=== PATIENT | male | born 1995 | race Caucasian/White ===

== ENCOUNTER 2016-09-29 08:40 | Inpatient (IN) | payer BC ==
[2016-09-14 09:13] VITALS: Ht 182.9 cm; Wt 90.3 kg
--- NOTE | 2016-09-14 09:34 | PAT Medication Instructions ---
Service Date September 14, 2016. Current Home Medication List Tramadol (Ultram), 50 MG PO Q8H PRN for Pain Medication Instructions For Your Scheduled Surgery - Take the following medications the morning of surgery with a sip of water: Tramadol (Ultram), 50 MG PO Q8H PRN for Pain (okay to take up to 4 hours prior to surgery if needed) - Take the following medications as scheduled the night before surgery: Tramadol (Ultram), 50 MG PO Q8H PRN for Pain (if needed) If you have any questions please call us at [phone] (Nano Ortega PA-C) or [phone] or [phone]
--- NOTE | 2016-09-14 10:15 | DIAGNOSTIC IMAGING REPORT ---
CHEST PREADMISSION(PA/LAT) HISTORY: Preop. COMPARISON: None. FINDINGS: The lungs are clear. Cardiac silhouette is normal in size. No pleural effusions. No pneumothorax. IMPRESSION: No acute process. Electronically signed by: Chapito Elkins M.D. 09/14/2016 10:14 AM Dictated Date/Time: 09/14/2016 10:13 AM
[2016-09-14 10:55] LABS: BUN/CREATININE RATIO 12.9 (10-20); POTASSIUM 4.2 mmol/L (3.5-5.1)
[2016-09-14 10:56] LABS: CALCIUM 9.8 mg/dl (8.5-10.1)
[2016-09-14 11:01] LABS: BASO % 0.5 %; BASO ABS # 0.03 K/uL (0-0.2); COMPLETE YES; EOS % 0.5 %; HEMATOCRIT 44.7 % (42-52); LYMPH % 31.2 %; LYMPH ABS # 1.88 K/uL (1.2-3.4); MEAN CELL VOLUME 92.5 fL (80-100); MEAN CORPUSCULAR HEMOGLOBIN 30.6 pg (25-34); MEAN CORPUSCULAR HGB CONC 33.1 g/dl (32-36); NEUT % 62.8 %; PLATELET COUNT 270 K/uL (130-400); RED BLOOD COUNT 4.83 M/uL (4.7-6.1); WHITE BLOOD COUNT 6.03 K/uL (4.8-10.8)
[2016-09-14 11:01] LABS: URINE APPEARANCE CLEAR (CLEAR); URINE BILIRUBIN NEG (NEG); URINE COLOR YELLOW; URINE NITRITE NEG (NEG); URINE SPECIFIC GRAVITY 1.017 (1.000-1.030); UROBILINOGEN NEG (NEG)
[2016-09-14 11:06] LABS: MANUAL MICROSCOPIC REQUIRED? NO; REVIEW REQ? NO
[~2016-09-29] VITALS: Ht 182.9 cm; Wt 90.3 kg
[2016-09-29] VITALS (10 sets, daily range): BP systolic 126–145; BP diastolic 65–89; PULSE 53–83; TEMP 36.7–37; O2SAT 95–100
[~2016-09-29 08:40] MED LIST: TRAM-10 PO
--- NOTE | 2016-09-29 09:26 | History & Physical Bridge Note ---
H&P Re-Evaluation Bridge Note: I have examined the patient, reviewed the History & Physical and in the interval since the performance of the History & Physical I have noted the following changes of clinical significance: No changes noted
--- NOTE | 2016-09-29 09:27 | History and Physical ---
History & Physical Date Sep 29, 2016. Chief Complaint back and leg pain History of Present Illness The patient is a 21 year old male with complaints of Past Medical/Surgical History Medical Problems: (1) Muscular dystrophy Additional History Hepatic Disease: No Endocrine Disorder: No Kidney Disease: No Hypertension: No Heart Disease: No Bleeding Tendencies: No Infectious Diseases: No Allergies Coded Allergies: Nickel (Verified Allergy, Mild, RASH, 09/29/16) Penicillins (Verified Allergy, Mild, RASH, 09/29/16) Home Medications Scheduled PRN Tramadol (Ultram), 50 MG PO Q8H PRN for Pain Physical Examination Skin: warm/dry, no rash Eyes: normal inspection, EOMI, sclerae normal ENT: normal ENT inspection, pharynx normal Head: normocephalic, atraumatic Neck: supple, no adenopathy, trachea midline Respiratory/Chest: lungs clear, normal breath sounds, no respiratory distress Cardiovascular: regular rate, rhythm, no edema, no murmur Abdomen / GI: normal bowel sounds, non tender Back: normal inspection Extremities: normal inspection, normal range of motion Neurologic/Psych: no motor/sensory deficits, alert, normal reflexes, oriented x 3 Diagnosis hnp/stenosis L4-5 Plan of Treatment decompression coflex L4-5
[2016-09-29] MEDS ORDERED: FENTANYL CITRATE INJ 50 MCG/1 ML 2 ML VIAL ONE ×3 (09:48→11:27)
[2016-09-29] MEDS ORDERED: MIDAZOLAM HCL 1 MG/ML 2ML VIAL ONE (09:48)
[2016-09-29] MEDS ORDERED: BACITRACIN 50000 UNIT VIAL ONE (09:58)
[2016-09-29] MEDS ORDERED: CLINDAMYCIN 600 MG/54 ML D5W IV ONE (10:03)
[2016-09-29] MEDS ORDERED: BUPIVACAINE/EPINEPHRINE 0.5% MPF 1:200,000 30 ML VIAL ONE (10:10)
[2016-09-29] MEDS ORDERED: HYDROmorphone INJ 2 MG/ML SYR/VIAL ONE ×2 (10:26→10:59)
[2016-09-29] MEDS ORDERED: DEXAMETHASONE SOD INJ 4 MG/ML VIAL ONE (10:37)
[2016-09-29] MEDS ORDERED: PROPOFOL IV EMULSION 10 MG/ML 20 ML VIAL IV ONE (10:37)
[2016-09-29] MEDS ORDERED: LIDOCAINE HCL 2% 2 ML VIAL (20MG/ML) ONE (10:37)
[2016-09-29] MEDS ORDERED: ROCURONIUM BROMIDE 10 MG/ML 5 ML VIAL ONE (10:37)
[2016-09-29] MEDS ORDERED: KETOROLAC TROMETHAMINE 30 MG/ML VIAL IV. PRN (11:00)
[2016-09-29] MEDS ORDERED: DO NOT ADMINISTER FLU VACCINE PRN ×3 (11:00)
[2016-09-29] MEDS ORDERED: LORAZEPAM 1 MG TAB PO PRN (11:00)
[2016-09-29] MEDS ORDERED: PROMETHAZINE HCL INJ 6.25 MG in SODIUM CHLORIDE 0.9% 50ML 50 ML IV PRN (11:00)
[2016-09-29] MEDS ORDERED: ACETAMINOPHEN 500 MG TAB PO PRN (11:00)
[2016-09-29] MEDS ORDERED: EpHEDrine SULFATE INJ 50 MG/ML AMP IV PRN (11:00)
[2016-09-29] MEDS ORDERED: FENTANYL CITRATE INJ 50 MCG/1 ML 2 ML VIAL IV PRN (11:00)
[2016-09-29] MEDS ORDERED: LORAZEPAM INJ 1 MG in SYRINGE 0 ML IV PRN (11:00)
[2016-09-29] MEDS ORDERED: ACETAMINOPHEN 325 MG TAB PO PRN (11:00)
[2016-09-29] MEDS ORDERED: MAGNESIUM HYDROXIDE SUSP 30 ML UDC PO PRN (11:00)
[2016-09-29] MEDS ORDERED: DO NOT ADMINISTER PNEUMOCOCCAL VACCINE PRN ×2 (11:00)
[2016-09-29] MEDS ORDERED: ONDANSETRON INJ 2 MG/ML 2 ML VIAL IV PRN ×2 (11:00)
[2016-09-29] MEDS ORDERED: TRAMADOL HCL 50 MG TAB PO PRN (11:00)
[2016-09-29] MEDS ORDERED: HYDROmorphone INJ 1 MG/ML SYR IV PRN ×2 (11:00)
[2016-09-29] MEDS ORDERED: ATROPINE SULFATE 0.1 MG/ML 5ML SYR IV PRN (11:00)
[2016-09-29] MEDS ORDERED: ONDANSETRON INJ 2 MG/ML 2 ML VIAL ONE (11:02)
[2016-09-29] MEDS ORDERED: EpHEDrine SULFATE 50MG/5ML SYR ONE (11:02)
[2016-09-29] MEDS ORDERED: KETOROLAC TROMETHAMINE 30 MG/ML VIAL ONE (11:02)
[2016-09-29] MEDS ORDERED: FLOSEAL HEMOSTATIC MATRIX 10ML TOP ONE (11:11)
--- NOTE | 2016-09-29 11:20 | DIAGNOSTIC IMAGING REPORT ---
INTRAOPERATIVE RADIOGRAPH CLINICAL HISTORY: L4-L5 Coflex. Fluoroscopy time: 5 seconds. EYES: A single spot fluoroscopic view of the lumbar spine is presented. A coflex device is noted between the spinous processes of L4 and L5. IMPRESSION: Intraoperative image of the lumbar spine as above. See operative report for detailed findings. Electronically signed by: Steve Neumann M.D. 09/29/2016 11:19 AM Dictated Date/Time: 09/29/2016 11:18 AM
--- NOTE | 2016-09-29 11:22 | OPERATIVE REPORT ---
DATE OF OPERATION: 09/29/2016 PREOPERATIVE DIAGNOSIS: Herniated nucleus pulposus, spinal stenosis L4-L5. POSTOPERATIVE DIAGNOSIS: Same. PROCEDURE PERFORMED: 1. Lumbar decompression, medial facetectomy, excision of herniated fragment L4-5 on the right. 2. Placement of Coflex posterior stabilization 14 mm in height at L4-L5. SURGEON: Dr. Adam Vo. TOEING STOCKINGS: Valdemar Reyna PA-C. Due to the complex nature of the procedure, the entire surgery was performed with the assistant men's lacrosse coach of Valdemar Reyna PA-C. The assistant teaching professor, under direct supervision, was involved in the actual performance of all aspects of the surgical procedure including hemostasis, tissue retraction and incision, instrument management, patient positioning, and wound closure. ANESTHESIA: General. DISPOSITION: The patient awakened and taken to PACU in stable condition. HISTORY OF PATIENT'S PROBLEMS: This is a 21-year-old male who presents with above-mentioned diagnosis. After failing an extensive course of nonoperative care, elected to undergo the above-mentioned procedure. Risks, benefits, pros, cons, and alternatives were outlined in detail preoperatively. OPERATION AND FINDINGS: DESCRIPTION OF PROCEDURE: The patient was met with preoperatively, the case discussed and all questions were addressed. At that point the patient was taken back to operative suite and after undergoing successful intubation via department of anesthesia was placed in prone position on Ahmet table atop a Milton frame. All bony prominences were well padded and the eyes were inspected to ensure there was no external pressure placed upon them. At this point, lumbar spine was prepped and draped in normal sterile fashion. With the assistance of fluoroscopy, we identified the L4-L5 disc space. Midline incision was created overlying this region. Sharp dissection with the assistance of Bovie cautery was performed down to and exposing the interlaminar space at L4-5. A self-retaining retractor was placed. I then performed a midline decompression, hemilaminotomy on the right with medial facetectomy to expose a severely compressed traversing nerve root. This was mobilized medially. Massive fragments of disc material were identified and removed creating significant decompression. Area was copiously irrigated, explored to ensure all instruments were addressed and then the interlaminar space was fashioned to fit a 14 mm Coflex implant. This was tapped into place, crimped in position. The incision was then copiously irrigated. A 10 round GREG drain inserted. It was then closed with #1 Vicryl in the fascia, 2-0 Vicryl subcutaneously, 4-0 Monocryl for final skin closure. Steri-Strips and sterile dressing placed. The patient was awakened and taken to PACU in stable condition. I attest to the content of the Intraoperative Record and any orders documented therein. Any exception s are noted below.
[2016-09-29] MEDS: LACTATED RINGER'S 1000ML 1,000 ML IV SCH (12:55)
--- NOTE | 2016-09-29 12:57 | Anesthesiology Progress Note ---
Anesthesia Post Op Note Date & Time Sep 29, 2016 at 12:57 Vital Signs Pain Intensity: 4.0 Vital Signs Past 12 Hours Date Time Temp Pulse Resp B/P (MAP) Pulse Ox O2 Delivery O2 Flow Rate FiO2 09/29/16 12:28 95 Nasal Cannula 2.0 09/29/16 11:55 36.8 73 12 139/80 99 Nasal Cannula 2 09/29/16 11:45 77 16 138/82 99 Nasal Cannula 2 09/29/16 11:35 86 15 138/78 100 Mask 10 09/29/16 11:25 80 15 118/77 100 Mask 10 09/29/16 11:15 37.2 73 14 111/57 94 Mask 10 09/29/16 09:29 36.7 66 16 140/79 99 Room Air Notes Mental Status: alert / awake / arousable, participated in evaluation Pt Amnestic to Procedure: Yes Nausea / Vomiting: adequately controlled Pain: adequately controlled Airway Patency, RR, SpO2: stable & adequate BP & HR: stable & adequate Hydration State: stable & adequate Anesthetic Complications: no major complications apparent
[2016-09-29] MEDS ORDERED: HYDROmorphone INJ 2 MG/ML SYR/VIAL IV PRN (13:00)
[2016-09-29] MEDS ORDERED: RXC5 PO (13:06)
--- NOTE | 2016-09-29 13:06 | Discharge Instructions ---
Discharge Instructions Date of Service Sep 29, 2016. Admission Reason for Admission: Lumbar Spinal Stenosis Discharge Discharge Diagnosis / Problem: hnp Discharge Goals Goal(s): Improve function Activity Recommendations Activity Limitations: per Instructions/Follow-up section . Instructions / Follow-Up Instructions / Follow-Up ACTIVITY RECOMMENDATIONS: SELF CARE INSTRUCTIONS AFTER A LAMINECTOMY 1. No prolonged sitting (less than 30 minutes for the first 3 weeks after surgery). 2. No bending, lifting more than 5 pounds, or twisting (roll like a log when turning in bed). 3. You may shower 3 days after surgery if no drainage from wound. Thoroughly dry wound. Do not soak in the tub. 4. Please walk as much as you can for exercise. Gradually increase the distance that you walk as your endurance increases. 5. You may drive in 7-10 days if you are comfortable and no longer requiring pain medications. SPECIAL CARE INSTRUCTIONS: VERY IMPORTANT TO READ AND REVIEW A. Your surgical incision has been closed with a cosmetic suture under the skin that will dissolve in about 6 weeks. In 14 days, you can use a pair of clean scissors and cut the suture that is left outside of the skin at the ends of your incision. B. Complications are uncommon, but please contact us if you have any signs or symptoms of: 1. wound infection (fever higher than 102.5 degrees F, redness, separation of wound, drainage, or increasing pain from the incision) 2. blood clots in legs (pain, swelling, redness and warmth in legs) 3. urinary tract infection (fever higher than 102.5 degrees, burning upon urination or increased frequency of urination) 4. nerve problems (inability to walk on your toes or heels, numbness, loss of bowel or bladder control) 5. any other symptoms that concern you. C. Please call the office at if you have any concerns or questions about your operation or recovery. MANAGING PAIN AFTER SPINAL SURGERY 1. Narcotic medication is intended for short-term use and will be provided for surgical pain. Surgical pain usually lasts for a period of 4-6 weeks. Narcotic medication includes Percocet, Vicodin, Darvocet, Tylenol #3 or Lortab. 2. Longer-term pain is more appropriately treated with non-narcotic medication such as Tylenol ES. 3. Muscle spasm is not appropriately treated with narcotics. Muscle relaxers such as Soma, Flexeril or Skelaxin can be used along with Tylenol ES. 4. Remember that we all live with some "aches and pains". This is not unusual or uncommon after an injury or as we get older. 5. We will provide appropriate medication within the normal guidelines of their prescribed use. We will also be very cautious and aware of potential abuse and extended duration of patients' medication needs. 6. Please allow 2-3 days to process refills. Prescriptions will not be mailed but must be picked up at the office. FOLLOW UP VISIT: Keep your scheduled follow-up appointment. Any questions, please call the office at . Current Hospital Diet Patient's current hospital diet: Regular Diet Discharge Diet Recommended Diet: Regular Diet Procedures Procedures Performed: L4-L5 Disectomy, Decompression; Coflex Implantation Pending Studies Studies pending at discharge: no Medical Emergencies . Who to Call and When: Medical Emergencies: If at any time you feel your situation is an emergency, please call 911 immediately. . Non-Emergent Contact Non-Emergency issues call your: Primary Care Provider . "Provider Documentation" section prepared by Adam Vo. . VTE Core Measure Inpt VTE Proph given/why not?: Amaury Watts, SCD's
[2016-09-29] MEDS: CLINDAMYCIN IV 600 MG in DEXTROSE 5% ADD-VANTAGE 50ML 50 ML IV SCH ×2 (15:39→23:41)
[2016-09-29] MEDS: OXYCODONE HCL IR 5 MG TAB (IMMEDIATE RELEASE) PO PRN ×2 (19:30→23:45)
[2016-09-29] MEDS: DOCUSATE SODIUM 100 MG CAP PO SCH (20:48)
[2016-09-30] MEDS: LACTATED RINGER'S 1000ML 1,000 ML IV SCH (01:32)
[2016-09-30 03:24] VITALS: BP 107/64; PULSE 65; TEMP 36.5; O2SAT 95
[2016-09-30 07:23] VITALS: BP 112/68; PULSE 92; TEMP 37.1; O2SAT 97
[2016-09-30] MEDS: OXYCODONE HCL IR 5 MG TAB (IMMEDIATE RELEASE) PO PRN (07:41)
[2016-09-30] MEDS: CLINDAMYCIN IV 600 MG in DEXTROSE 5% ADD-VANTAGE 50ML 50 ML IV SCH (07:41)
[2016-09-30 07:45] VITALS: O2SAT 97
[2016-09-30] MEDS: DOCUSATE SODIUM 100 MG CAP PO SCH (08:45)
--- NOTE | 2016-09-30 10:18 | DISCHARGE SUMMARY ---
PRINCIPAL DIAGNOSIS: Herniated nucleus pulposus, spinal stenosis L4-L5. HOSPITAL COURSE FOLLOWS: On September 29 the patient underwent decompression with Coflex stabilization L4-L5, tolerated this well and taken to the orthopedic floor postoperatively. Postop day #1, leg pain was markedly improved. He is ambulating well. Subsequently discharged home. Discharge orders and instructions found on the chart for further review.
[2016-09-30 11:16] VITALS: BP 112/68; PULSE 92; TEMP 37.1; O2SAT 97
[2016-10-01] MEDS ORDERED: BISACODYL 10 MG SUPP PR PRN (06:00)
[2016-10-01] MEDS ORDERED: BISACODYL 5 MG TABEC PO PRN (06:00)
[2016-10-02] MEDS ORDERED: POLYETHYLENE (MIRALAX) 17 GM PACK PO SCH (09:00)
== END 2016-09-30 12:40 | disposition home or self-care (01) | DRG 519 ==
LOC: C.ACU 08:40 → C.MSW 10:00 → ENRESERV 11:57
PROVIDERS: ADMIT Orthopaedic Surgery Orthopaedic Surgery of the Spine; ATTEND Orthopaedic Surgery Orthopaedic Surgery of the Spine
PROC: 0SH008Z Insertion of Spacer into Lumbar Vertebral Joint, Open Approach (ICD-10-PCS; principal; 2016-09-29 10:15)
PROC: 0SB20ZZ Excision of Lumbar Vertebral Disc, Open Approach (ICD-10-PCS; principal; 2016-09-29 10:15)
PROC: 01NB0ZZ Release Lumbar Nerve, Open Approach (ICD-10-PCS; principal; 2016-09-29 10:15)
DX: M51.26 Other intervertebral disc displacement, lumbar region (principal); G71.0 Muscular dystrophy; M48.06 Spinal stenosis, lumbar region; G62.9 Polyneuropathy, unspecified; F17.210 Nicotine dependence, cigarettes, uncomplicated; Z79.891 Long term (current) use of opiate analgesic